=== PATIENT | female | born 1945 | race Caucasian/White ===

== ENCOUNTER 2019-05-08 08:40 | Day surgery (SDC) | payer OTHER ==
[2019-05-07 12:42] VITALS: BMI 31.1
[2019-05-08 10:36] VITALS: TEMP 97.6
[2019-05-08 11:27] VITALS: BP 128/70; PULSE 58
--- NOTE | 2019-05-09 19:30 | PATH ---
Surgical Pathology Report Patient Name: DIANA CUNNINGHAM [facility]. Rec. #: [id number] /Age/Gender: 1945 (Age: 73) / F Account: [id number] Location: [facility]-ENDOSCOPY Taken: 05/08/2019 Received: 05/08/2019 Reported: 05/09/2019 Physicians: Vincent Rios D.O. Specimen(s) Received A: RIGHT COLON POLYP B: IC VALVE POLYP C: HEPATIC FLEXURE POLYP D: PROXIMAL TRANSVERSE COLON POLYP E: POLYP SIGMOID (X2) F: RECTAL POLYP (X3) Clinical History History of colonic polyps, functional dyspepsia Postoperative diagnosis: Colonic polyps, AVM Final Diagnosis A. RIGHT COLON POLYP, POLYPECTOMY: TUBULAR ADENOMA. B. IC VALVE POLYP, BIOPSY: COLONIC MUCOSA WITH SURFACE HYPERPLASTIC CHANGE. C. HEPATIC FLEXURE POLYP, POLYPECTOMY: TUBULAR ADENOMA. D. TUMOR TRANSVERSE COLON POLYP, POLYPECTOMY: TUBULAR ADENOMA. E. SIGMOID POLYP (X2), POLYPECTOMY: TUBULAR ADENOMA, ONE FRAGMENT. SEPARATE ONE FRAGMENT COLONIC MUCOSA WITH FOCAL CRYPTAL ARCHITECTURAL DISTORTION AND FOCAL SURFACE HYPERPLASTIC CHANGE. F. RECTAL POLYP (X3), POLYPECTOMY: TWO FRAGMENTS OF HYPERPLASTIC POLYP. Electronically Signed Jessica Mueller M.D. Gross Description A. Received in formalin, labeled "right colon polyp" are 3 hayes, irregular portions of soft tissue ranging from 0.3-0.4 cm. in greatest dimension. The specimens are submitted in toto in one cassette. B. Received in formalin, labeled "ileocecal valve polyp" is a hayes, irregular portion of soft tissue measuring 0.3 cm. in greatest dimension. The specimen is submitted in toto in one cassette. C. Received in formalin, labeled "hepatic flexure polyp" are 2 hayes, irregular portions of soft tissue measuring 0.1 and 0.3 cm. in greatest dimension. The specimens are submitted in toto in one cassette. D. Received in formalin, labeled "proximal transverse colon polyp" is a hayes, irregular portion of soft tissue measuring 0.3 cm. in greatest dimension. The specimen is submitted in toto in one cassette. E. Received in formalin, labeled "sigmoid polyps" are 2 hayes, irregular portions of soft tissue measuring 0.2 and 0.3 cm. in greatest dimension. The specimens are submitted in toto in one cassette. F. Received in formalin, labeled "rectal polyps" are 2 hayes, irregular portions of soft tissue averaging 0.2 cm. in greatest dimension. The specimens are submitted in toto in one cassette. 05/08/2019 [facility]05/08/2019
== END 2019-05-08 11:27 | disposition home or self-care (01) ==
LOC: JASU-ENDO 08:40
PROVIDERS: ATTEND Internal Medicine Gastroenterology
PROC: 0DBC8ZX Excision of Ileocecal Valve, Via Natural or Artificial Opening Endoscopic, Diagnostic (ICD-10-PCS; 2019-05-08)
PROC: 0DBL8ZX Excision of Transverse Colon, Via Natural or Artificial Opening Endoscopic, Diagnostic (ICD-10-PCS; 2019-05-08)
PROC: 0DBN8ZX Excision of Sigmoid Colon, Via Natural or Artificial Opening Endoscopic, Diagnostic (ICD-10-PCS; 2019-05-08)
PROC: 0DBP8ZX Excision of Rectum, Via Natural or Artificial Opening Endoscopic, Diagnostic (ICD-10-PCS; 2019-05-08)
PROC: 0DBK8ZX Excision of Ascending Colon, Via Natural or Artificial Opening Endoscopic, Diagnostic (ICD-10-PCS; principal; 2019-05-08 09:45)
DX: Z86.010 Personal history of colon polyps (principal); D12.0 Benign neoplasm of cecum; D12.2 Benign neoplasm of ascending colon; D12.3 Benign neoplasm of transverse colon; D12.5 Benign neoplasm of sigmoid colon; D12.8 Benign neoplasm of rectum
CPT/HCPCS: 88305-TC

== ENCOUNTER 2019-05-15 09:56 | Day surgery (SDC) | payer OTHER ==
[2019-05-15 10:36] VITALS: BMI 33.6
[2019-05-15 11:46] VITALS: TEMP 97.4
[2019-05-15 12:11] VITALS: BP 118/66; PULSE 70
--- NOTE | 2019-05-16 16:51 | PATH ---
Surgical Pathology Report Patient Name: LUCY CUNNINGHAM [facility]. Rec. #: [id number] /Age/Gender: 1945 (Age: 73) / F Account: [id number] Location: [facility]-ENDOSCOPY Taken: 05/15/2019 Received: 05/15/2019 Reported: 05/16/2019 Physicians: Vincent Rios D.O. Specimen(s) Received A: ANTRAL EROSIONS B: ANGULARIS AND BODY Clinical History Dyspepsia Postoperative diagnosis: Gastritis, antral erosions, gastric inlet patch Final Diagnosis A. Stomach, antral erosions, biopsy: Gastric ANTRAL mucosa with MILD chronic gastritis and patchy intestinal metaplasia. No dysplasia identified. Immunohistochemical STAIN FOR H. Pylori is negative. B. Stomach, angularis and body, biopsy: Gastric body mucosa with MILD chronic gastritis. Immunohistochemical STAIN FOR H. Pylori is negative. Positive and negative controls (internal if applicable) show appropriate results. Electronically Signed Lucy Beckett M.D. Gross Description A. Received in formalin, labeled "antral erosions biopsy" are 5 hayes, irregular portions of soft tissue ranging from 0.2-0.5 cm. in greatest dimension. The specimens are submitted in toto in one cassette. B. Received in formalin, labeled "angularis and body biopsy" are 6 hayes, irregular portions of soft tissue ranging from 0.1-0.6 cm. in greatest dimension. The specimens are submitted in toto in one cassette. DL/05/15/2019 [place]/05/15/2019
== END 2019-05-15 12:07 | disposition home or self-care (01) ==
LOC: JASU-ENDO 09:56
PROVIDERS: ATTEND Internal Medicine Gastroenterology
PROC: 0DB68ZX Excision of Stomach, Via Natural or Artificial Opening Endoscopic, Diagnostic (ICD-10-PCS; 2019-05-15)
PROC: 0DB18ZX Excision of Upper Esophagus, Via Natural or Artificial Opening Endoscopic, Diagnostic (ICD-10-PCS; principal; 2019-05-15 11:15)
DX: R10.13 Epigastric pain (principal); K25.9 Gastric ulcer, unspecified as acute or chronic, without hemorrhage or perforation
CPT/HCPCS: 88305-TC; 88342-TC

== ENCOUNTER 2022-05-04 04:21 | Day surgery (SDC) | payer OTHER, MEDICARE ==
[2022-05-02 16:39] VITALS: BMI 32.1
[2022-05-04 11:17] VITALS: RESP 18; TEMP 98
[2022-05-04 11:19] VITALS: BP 110/54; PULSE 70
[2022-05-05 19:09] LABS: GLIADIN ANTIBODY IGA 9 units (0-19); GLIADIN ANTIBODY IGG 4 units (0-19); TRANSGLUTAMINASE IGG < 2 U/mL (0-5)
== END 2022-05-04 11:10 | disposition home or self-care (01) ==
LOC: JASU-ENDO 04:21
PROVIDERS: ATTEND Internal Medicine Gastroenterology
PROC: 0DB98ZX Excision of Duodenum, Via Natural or Artificial Opening Endoscopic, Diagnostic (ICD-10-PCS; 2022-05-04)
PROC: 0DB68ZX Excision of Stomach, Via Natural or Artificial Opening Endoscopic, Diagnostic (ICD-10-PCS; 2022-05-04)
PROC: 0DBH8ZX Excision of Cecum, Via Natural or Artificial Opening Endoscopic, Diagnostic (ICD-10-PCS; 2022-05-04)
PROC: 0DBP8ZX Excision of Rectum, Via Natural or Artificial Opening Endoscopic, Diagnostic (ICD-10-PCS; 2022-05-04)
PROC: 0DJD8ZZ Inspection of Lower Intestinal Tract, Via Natural or Artificial Opening Endoscopic (ICD-10-PCS; principal; 2022-05-04 08:45)
DX: Z12.11 Encounter for screening for malignant neoplasm of colon (principal); D12.0 Benign neoplasm of cecum; D12.8 Benign neoplasm of rectum; K64.8 Other hemorrhoids; K57.30 Diverticulosis of large intestine without perforation or abscess without bleeding; K25.9 Gastric ulcer, unspecified as acute or chronic, without hemorrhage or perforation; K26.9 Duodenal ulcer, unspecified as acute or chronic, without hemorrhage or perforation; K29.70 Gastritis, unspecified, without bleeding
CPT/HCPCS: 36415; 82784; 82941; 83516; 88305-TC; 88342-TC

== ENCOUNTER 2022-07-05 16:02 | Inpatient (IN) | payer OTHER, MEDICARE ==
[2022-07-05] MEDS ORDERED: FAMOTIDINE 20 MG/50 ML IVPB 20 MG/50 ML MG IVPB ONE (17:45)
[2022-07-05] MEDS ORDERED: ACETAMINOPHEN 1000 MG/100 ML BAG IVPB ONE (17:45)
[2022-07-05] MEDS ORDERED: ACETAMINOPHEN INJECTION 100 ML IVPB ONE (17:55)
[2022-07-05] MEDS ORDERED: FAMOTIDINE 10 MG/ML VIAL IVPB ONE (17:56)
[2022-07-05 18:13] LABS: EOS % 1.7 % (0-4.5); HEMATOCRIT 41.1 % (32.4-45.2); HEMOGLOBIN 13.6 GM/dL (10.7-15.3); LYMPH % 19.4 % (8-40); MCH 26.6 pg (25.7-33.7); MCHC 33.1 g/dl (32.0-36.0); MEAN CELL VOLUME 80.6 fl (80-96); MEAN PLT VOLUME 8.1 fl (7.5-11.1); MONO % 8.2 % (3.8-10.2); NEUT % 69.7 % (42.8-82.8); PLATELET COUNT 269 10^3/uL (134-434); RBC 5.11 M/mm3 (3.60-5.2); RDW 17.7 % (11.6-15.6); WHITE BLOOD COUNT 16.7 K/mm3 (4.0-10.0)
[2022-07-05] MEDS ORDERED: DEXAMETHASONE SOD PHOSPHATE 10 MG/1 ML VIAL ONE (18:24)
[2022-07-05] MEDS ORDERED: DEXAMETHASONE SOD PHOSPHATE 10 MG/1 ML VIAL IVPUSH ONE (18:24)
[2022-07-05 18:25] LABS: INR 1.13 (0.83-1.09); PROTHROMBIN TIME (PATIENT) 13.1 SEC (9.7-13.0)
[2022-07-05 18:28] LABS: ACTIVATED PTT 30.4 SECONDS (25.2-36.5)
[2022-07-05 18:35] LABS: ALBUMIN 3.7 g/dl (3.4-5.0); BLOOD UREA NITROGEN 25.8 mg/dL (7-18); CALCIUM 9.8 mg/dL (8.5-10.1)
[2022-07-05 18:38] LABS: CREATININE 0.8 mg/dL (0.55-1.3)
[2022-07-05 18:40] LABS: BILIRUBIN,TOTAL 0.8 mg/dL (0.2-1); TOT PROT 7.2 g/dl (6.4-8.2)
[2022-07-05 19:34] LABS: URINE APPEARANCE CLEAR; URINE BILIRUBIN NEGATIVE (NEGATIVE); URINE COLOR DK YELLOW; URINE GLUCOSE (UA) NEGATIVE (NEGATIVE); URINE KETONE TRACE (NEGATIVE); URINE LEUK ESTERASE NEGATIVE (NEGATIVE); URINE NITRITE NEGATIVE (NEGATIVE); URINE PROTEIN NEGATIVE (NEGATIVE); URINE UROBILINOGEN 0.2 mg/dL (0.2-1.0)
[2022-07-05] MEDS ORDERED: CEFAZOLIN 1 GM in DEXTROSE 5%-WATER - 50 ML IVPB ONE (19:56)
[2022-07-05] MEDS ORDERED: ceFAZolin SODIUM 1 GM VIAL ONE (20:07)
[2022-07-05] MEDS ORDERED: SODIUM CHLORIDE 0.45% 1,000 ML IV SCH (22:45)
[2022-07-05] MEDS ORDERED: SODIUM CHLORIDE 1,000 ML IV SCH (23:55)
[2022-07-06] MEDS ORDERED: ceFAZolin SODIUM 1 GM VIAL IVPB ONE
[2022-07-06 00:46] VITALS: BMI 30.1
[2022-07-06] MEDS: ENOXAPARIN NA (PORCINE) 40 MG/0.4 ML DISP.SYRIN SQ SCH ×2 (02:40→10:10)
[2022-07-06] MEDS ORDERED: CEFTRIAXONE 1 GM in DEXTROSE 5%-WATER - 50 ML IVPB SCH ×2 (03:16→10:00)
[2022-07-06] MEDS ORDERED: DULoxetine HCL 30 MG CAPSULE.DR PO SCH (10:00)
[2022-07-06] MEDS ORDERED: RAMIPRIL 5 MG CAPSULE PO SCH (10:00)
[2022-07-06] MEDS ORDERED: metoPROLOL SUCCINATE 25 MG TAB.SR.24H (FP) PO SCH (10:00)
[2022-07-06 10:01] LABS: BASO % 0.2 % (0-2.0); EOS % 0.1 % (0-4.5); HEMATOCRIT 37.8 % (32.4-45.2); HEMOGLOBIN 12.7 GM/dL (10.7-15.3); LYMPH % 11.4 % (8-40); MCH 27.1 pg (25.7-33.7); MCHC 33.7 g/dl (32.0-36.0); MEAN CELL VOLUME 80.5 fl (80-96); MEAN PLT VOLUME 8.6 fl (7.5-11.1); MONO % 3.5 % (3.8-10.2); NEUT % 84.8 % (42.8-82.8); PLATELET COUNT 269 10^3/uL (134-434); RBC 4.69 M/mm3 (3.60-5.2); RDW 18.2 % (11.6-15.6); WHITE BLOOD COUNT 10.1 K/mm3 (4.0-10.0)
[2022-07-06 10:05] LABS: INR 1.16 (0.83-1.09); PROTHROMBIN TIME (PATIENT) 13.4 SEC (9.7-13.0)
[2022-07-06 10:08] LABS: ACTIVATED PTT 27.7 SECONDS (25.2-36.5)
[2022-07-06 10:31] LABS: ALBUMIN 3.2 g/dl (3.4-5.0)
[2022-07-06 10:32] LABS: BLOOD UREA NITROGEN 22.3 mg/dL (7-18); CALCIUM 8.9 mg/dL (8.5-10.1); MAGNESIUM 2.2 mg/dL (1.8-2.4)
[2022-07-06 10:34] LABS: CREATININE 0.7 mg/dL (0.55-1.3); PHOSPHOROUS 3.7 mg/dL (2.5-4.9)
[2022-07-06 10:35] LABS: BILIRUBIN,TOTAL 0.7 mg/dL (0.2-1); TOT PROT 6.5 g/dl (6.4-8.2)
[2022-07-06] MEDS ORDERED: ROCURONIUM BROMIDE 50 MG/5 ML SYRINGE ONE (11:35)
[2022-07-06] MEDS ORDERED: ACETAMINOPHEN INJECTION 100 ML IVPB ONE (11:57)
[2022-07-06] MEDS ORDERED: DEXMEDETOMIDINE HCL 200 MCG/2 ML IVPB ONE (11:58)
[2022-07-06] MEDS ORDERED: BUPIVACAINE HCL/PF 0.5% (5MG/ML) 10 ML VIAL IJ ONE ×2 (12:28)
[2022-07-06] MEDS ORDERED: SUCCINYLCHOLINE CHLORIDE 200 MG/10 ML SYRINGE ONE (12:36)
[2022-07-06] MEDS ORDERED: PROPOFOL 20 ML ONE (12:37)
[2022-07-06] MEDS ORDERED: oxyCODONE HCL 5 MG TABLET PO PRN (13:34)
[2022-07-06] MEDS ORDERED: IBUPROFEN 600 MG TABLET (FP) PO PRN (13:34)
[2022-07-06] MEDS ORDERED: SODIUM CHLORIDE 0.45% 1,000 ML IV SCH (13:34)
[2022-07-06] MEDS ORDERED: ONDANSETRON 4 MG/2 ML VIAL ONE (15:02)
[2022-07-06] MEDS ORDERED: ONDANSETRON 4 MG/2 ML VIAL IVPUSH PRN (15:18)
[2022-07-06] MEDS: ACETAMINOPHEN 500 MG TABLET (FP) PO PRN (18:32)
[2022-07-06 21:22] VITALS: RESP 20
[2022-07-06] MEDS: RAMIPRIL 5 MG CAPSULE PO SCH (21:26)
[2022-07-06] MEDS ORDERED: ROSUVASTATIN CA 20 MG TABLET PO SCH ×2 (22:00)
[2022-07-07] MEDS: ACETAMINOPHEN 500 MG TABLET (FP) PO PRN (06:20)
[2022-07-07 09:54] LABS: BASO % 0.6 % (0-2.0); EOS % 1.3 % (0-4.5); HEMATOCRIT 35.6 % (32.4-45.2); HEMOGLOBIN 11.8 GM/dL (10.7-15.3); LYMPH % 18.5 % (8-40); MCH 26.6 pg (25.7-33.7); MCHC 33.2 g/dl (32.0-36.0); MEAN CELL VOLUME 80.2 fl (80-96); MONO % 6.1 % (3.8-10.2); NEUT % 73.5 % (42.8-82.8); PLATELET COUNT 229 10^3/uL (134-434); RBC 4.44 M/mm3 (3.60-5.2); RDW 18.2 % (11.6-15.6); WHITE BLOOD COUNT 13.1 K/mm3 (4.0-10.0)
[2022-07-07] MEDS: RAMIPRIL 5 MG CAPSULE PO SCH (09:54)
[2022-07-07] MEDS ORDERED: PANTOPRAZOLE 40 MG TABLET PO SCH (10:00)
[2022-07-07] MEDS ORDERED: metoPROLOL SUCCINATE 25 MG TAB.SR.24H (FP) PO SCH (10:00)
[2022-07-07] MEDS ORDERED: ENOXAPARIN NA (PORCINE) 40 MG/0.4 ML DISP.SYRIN SQ SCH (10:00)
[2022-07-07] MEDS ORDERED: DULoxetine HCL 30 MG CAPSULE.DR PO SCH (10:00)
[2022-07-07 10:17] LABS: BLOOD UREA NITROGEN 17.1 mg/dL (7-18); CALCIUM 8.4 mg/dL (8.5-10.1)
[2022-07-07 10:22] LABS: CREATININE 0.7 mg/dL (0.55-1.3)
[2022-07-07] MEDS ORDERED: DOCUSATE SODIUM 100 MG CAPSULE (FP) PO ONE (14:28)
[2022-07-07 17:24] VITALS: BP 124/54; PULSE 70; TEMP 98
== END 2022-07-07 19:11 | disposition home or self-care (01) | DRG 343 ==
LOC: JERFT 16:02 → JER 16:02 → JERBED 20:07 → OBSVTOIN 22:28 → J8W 22:51
PROVIDERS: ADMIT Internal Medicine; ATTEND Nurse Practitioner Family
PROC: 0DTJ4ZZ Resection of Appendix, Percutaneous Endoscopic Approach (ICD-10-PCS; principal; 2022-07-06 12:30)
DX: K36 Other appendicitis (principal); I10 Essential (primary) hypertension; E11.9 Type 2 diabetes mellitus without complications; I44.7 Left bundle-branch block, unspecified; K21.9 Gastro-esophageal reflux disease without esophagitis; M79.7 Fibromyalgia; E78.5 Hyperlipidemia, unspecified; Z96.653 Presence of artificial knee joint, bilateral; D72.829 Elevated white blood cell count, unspecified
CPT/HCPCS: 0241U-QW; 36415; 74176-TC; 80048; 80053; 81003; 82272; 83036; 83735; 84100; 85025; 85610; 85730; 86850; 86900; 86901; 87086; 88304-TC; 93005; 93010; 94010; 94760; 99285-25; G0378; J1100

== ENCOUNTER 2024-01-18 13:37 | Inpatient (IN) | payer OTHER, MEDICARE ==
[2024-01-18 15:02] LABS: INR 1.04 (0.83-1.09); PROTHROMBIN TIME (PATIENT) 11.8 SEC (9.7-13.0)
[2024-01-18 15:05] LABS: ACTIVATED PTT 30.5 SECONDS (25.2-36.5)
[2024-01-18 15:10] LABS: MCH 25.6 pg (25.7-33.7); MCHC 30.9 g/dl (32.0-36.0); MEAN CELL VOLUME 82.9 fl (80-96); MEAN PLT VOLUME 8.1 fl (7.5-11.1); PLATELET COUNT 311.7 10^3/uL (134-434); RDW 18.1 % (11.6-15.6); WHITE BLOOD COUNT 10.4 10^3/uL (4.0-10.8)
[2024-01-18 15:17] LABS: ALBUMIN 3.9 g/dl (3.4-5.0); BILIRUBIN,TOTAL 0.6 mg/dl (0.2-1); CREATININE 0.7 mg/dl (0.6-1.3); POTASSIUM 4.1 mmol/L (3.5-5.1); TOT PROT 6.7 g/dl (6.4-8.2)
[2024-01-18 15:45] LABS: PLATELET ESTIMATE ADEQUATE
[2024-01-18] MEDS ORDERED: PIPERACILLIN/TAZOBACTAM 4.5 GM VIAL IVPB ONE (18:03)
[2024-01-18] MEDS ORDERED: VANCOMYCIN 1,000 MG VIAL (RESTRICTED TO ID ONLY) ONE (18:03)
[2024-01-18] MEDS: PIPERACILLIN/TAZOB 4.5 GM 4.5 GM/100 ML BAG IVPB ONE (18:17)
[2024-01-18] MEDS: VANCOMYCIN 1,000 MG in DEXTROSE 5%-WATER - 250 ML IVPB ONE (18:40)
[2024-01-18] MEDS ORDERED: DOCUSATE SODIUM 100 MG CAPSULE (FP) PO PRN (20:32)
[2024-01-18 22:13] VITALS: BMI 34.9
[2024-01-18] MEDS: PIPERACILLIN/TAZOB 4.5 GM 4.5 GM/100 ML BAG IVPB SCH (22:27)
[2024-01-18] MEDS: ACETAMINOPHEN 325 MG TABLET (FP) PO PRN (23:16)
[2024-01-18] MEDS: PIPERACILLIN/TAZOB 4.5 GM 4.5 GM in DEXTROSE 5%-WATER 100 ML IVPB SCH (23:59)
[2024-01-19] MEDS: PANTOPRAZOLE SODIUM 40 MG VIAL IVPUSH ONE (02:48)
[2024-01-19] MEDS ORDERED: HEPARIN NA (PORCINE) 5,000 UNITS/ML 1ML VIAL IVPUSH PRN ×2 (04:29)
[2024-01-19] MEDS: HEPARIN INFUSION - 25,000 UNITS/500 ML INFUS.BAG IVPB SCH (05:45)
[2024-01-19] MEDS: VANCOMYCIN HCL IN 5 % DEXTROSE 1,500 MG/300 ML BAG IVPB ONE (06:46)
[2024-01-19] MEDS ORDERED: POLYETHYLENE GLYCOL (HEALTHYLAX) 3350 17 GM PACKET PO PRN (07:20)
[2024-01-19 08:42] LABS: HEMATOCRIT 40.3 % (32.4-45.2); HEMOGLOBIN 12.5 G/dL (10.7-15.3); MCH 25.4 pg (25.7-33.7); MCHC 30.9 g/dl (32.0-36.0); MEAN CELL VOLUME 82.1 fl (80-96); MEAN PLT VOLUME 8.8 fl (7.5-11.1); PLATELET COUNT 294.9 10^3/uL (134-434); RBC 4.91 10^6/uL (3.60-5.2); RDW 18.5 % (11.6-15.6); WHITE BLOOD COUNT 8.3 10^3/uL (4.0-10.8)
[2024-01-19 09:19] LABS: MAGNESIUM 2.1 mg/dL (1.8-2.4); PHOSPHOROUS 5.4 (2.5-4.9)
[2024-01-19] MEDS ORDERED: DULoxetine HCL 30 MG CAPSULE.DR PO ONE (11:27)
[2024-01-19] MEDS ORDERED: ENOXAPARIN NA (PORCINE) 100 MG/1 ML DISP.SYRIN SQ SCH (11:30)
[2024-01-19] MEDS: DULoxetine HCL 60 MG CAPSULE.DR PO SCH (11:32)
[2024-01-19] MEDS: metoPROLOL SUCCINATE 25 MG TAB.SR.24H (FP) PO SCH (11:32)
[2024-01-19] MEDS: NYSTATIN 100000 UNIT/GM TOPICAL OINTMENT 15 GM TUBE TP SCH (11:40)
[2024-01-19] MEDS: methylPREDNISolone 8 MG TABLET PO ONE (12:12)
[2024-01-19] MEDS: ENOXAPARIN NA (PORCINE) 100 MG/1 ML DISP.SYRIN SQ SCH (13:40)
[2024-01-19] MEDS: methylPREDNISolone 4 MG TABLET PO ONE (13:42)
[2024-01-19] MEDS ORDERED: methylPREDNISolone NA SUCC 40 MG/1 ML VIAL IVPUSH SCH (17:00)
[2024-01-19] MEDS: methylPREDNISolone NA SUCC 40 MG/1 ML VIAL IVPUSH SCH (17:38)
[2024-01-19] MEDS: DOCUSATE SODIUM 100 MG CAPSULE (FP) PO SCH (21:29)
[2024-01-19] MEDS: ROSUVASTATIN CA 20 MG TABLET PO SCH (21:29)
[2024-01-19] MEDS: guaiFENesin/D-METHORPHAN HB 10 ML UNIT-DOSE CUPS PO PRN (23:56)
[2024-01-20] MEDS ORDERED: POLYETHYLENE GLYCOL (HEALTHYLAX) 3350 17 GM PACKET PO PRN (07:36)
[2024-01-20] MEDS ORDERED: guaiFENesin/D-METHORPHAN HB 10 ML UNIT-DOSE CUPS PO PRN (07:36)
[2024-01-20] MEDS ORDERED: methylPREDNISolone 8 MG TABLET PO ONE (09:00)
[2024-01-20] MEDS: DULoxetine HCL 30 MG CAPSULE.DR PO SCH (09:41)
[2024-01-20] MEDS ORDERED: PANTOPRAZOLE 20 MG TABLET PO SCH (10:00)
[2024-01-20] MEDS ORDERED: PANTOPRAZOLE SODIUM 40 MG VIAL IVPUSH SCH (10:00)
[2024-01-20] MEDS: NYSTATIN 100000 UNIT/GM TOPICAL OINTMENT 15 GM TUBE TP SCH (10:10)
[2024-01-20] MEDS: metoPROLOL SUCCINATE 25 MG TAB.SR.24H (FP) PO SCH (10:10)
[2024-01-20] MEDS: PANTOPRAZOLE SODIUM 40 MG VIAL IVPUSH SCH (10:10)
[2024-01-20 11:23] LABS: BASO % 0.5 % (0-2.0); HEMOGLOBIN 12.3 GM/dL (10.7-15.3); LYMPH % 15.3 % (8-40); MCH 25.5 pg (25.7-33.7); MCHC 32.3 g/dl (32.0-36.0); MEAN CELL VOLUME 78.8 fl (80-96); MEAN PLT VOLUME 7.6 fl (7.5-11.1); MONO % 4.5 % (3.8-10.2); NEUT % 79.7 % (42.8-82.8); PLATELET COUNT 303 10^3/uL (134-434); RBC 4.83 M/mm3 (3.60-5.2); RDW 18.1 % (11.6-15.6)
[2024-01-20] MEDS: VANCOMYCIN HCL 1,500 MG in DEXTROSE 5%-WATER - 250 ML IVPB SCH (12:24)
[2024-01-20] MEDS: PIPERACILLIN/TAZOB 4.5 GM 4.5 GM in DEXTROSE 5%-WATER 100 ML IVPB SCH ×2 (12:25→12:34)
[2024-01-20 12:43] LABS: ALBUMIN 3.3 g/dl (3.4-5.0); BILIRUBIN,TOTAL 0.6 mg/dL (0.2-1); BLOOD UREA NITROGEN 15.6 mg/dL (7-18); CALCIUM 8.6 mg/dL (8.5-10.1); CREATININE 0.8 mg/dL (0.55-1.3); POTASSIUM 3.6 mmol/L (3.5-5.1); TOT PROT 7.1 g/dl (6.4-8.2)
[2024-01-20] MEDS ORDERED: VANCOMYCIN HCL 1,500 MG in DEXTROSE 5%-WATER - 250 ML IVPB SCH (18:00)
[2024-01-20] MEDS: ROSUVASTATIN CA 20 MG TABLET PO SCH (22:19)
[2024-01-20] MEDS: DOCUSATE SODIUM 100 MG CAPSULE (FP) PO SCH (22:24)
[2024-01-20] MEDS: MELATONIN 1 MG TABLET PO SCH (23:42)
[2024-01-21] MEDS: ACETAMINOPHEN 325 MG TABLET (FP) PO PRN (05:39)
[2024-01-21 08:18] LABS: HEMATOCRIT 35.8 % (32.4-45.2); HEMOGLOBIN 11.9 GM/dL (10.7-15.3); MCH 25.6 pg (25.7-33.7); MCHC 33.2 g/dl (32.0-36.0); MEAN CELL VOLUME 77.2 fl (80-96); MEAN PLT VOLUME 7.6 fl (7.5-11.1); PLATELET COUNT 278 10^3/uL (134-434); RBC 4.64 M/mm3 (3.60-5.2); RDW 17.9 % (11.6-15.6)
[2024-01-21] MEDS ORDERED: ENOXAPARIN NA (PORCINE) 40 MG/0.4 ML DISP.SYRIN SQ SCH (10:00)
[2024-01-21 11:05] VITALS: BP 116/81; PULSE 66; RESP 16; TEMP 97.5
[2024-01-21] MEDS ORDERED: RAMIPRIL 5 MG CAPSULE PO SCH (22:00)
== END 2024-01-21 12:27 | disposition home or self-care (01) | DRG 204 ==
LOC: FER 13:37 → FM/S 18:35 → J4W 01-19 23:21
DX: R06.02 Shortness of breath (principal); I10 Essential (primary) hypertension; E11.9 Type 2 diabetes mellitus without complications; E78.5 Hyperlipidemia, unspecified; G89.29 Other chronic pain; K21.9 Gastro-esophageal reflux disease without esophagitis; K58.9 Irritable bowel syndrome, unspecified; M79.7 Fibromyalgia; R07.89 Other chest pain; R68.83 Chills (without fever); I49.3 Ventricular premature depolarization; R05.9 Cough, unspecified; I44.7 Left bundle-branch block, unspecified; Z96.611 Presence of right artificial shoulder joint
CPT/HCPCS: 0241U-QW; 36415; 71046-TC-FY; 71275-TC; 80053; 83735; 83880; 84100; 84484; 85025; 85027; 85379; 85610; 85730; 93005; 93306-TC; 93970-TC; 93971; 97116-GP; 97162-GP; 99285-25; J1644